=== PATIENT | male | born 1970 | race American Indian/Alaskan Native ===

== ENCOUNTER 2018-06-05 11:15 | Emergency (ER) | payer MEDICAID ==
[2018-06-05 11:33] VITALS: TEMP 98.3
[2018-06-05 12:39] LABS: BASO % 0.3 % (0.0-2.0); EOS # 0.1 K/uL (0.0-0.7); EOS % 1.6 % (0.0-4.0); HEMOGLOBIN 14.2 g/dL (12.0-18.0); LYMPH # 2.3 K/uL (1.0-4.3); LYMPH % 44.7 % (20.0-40.0); MEAN CELL VOLUME 93.6 fL (80.0-94.0); MEAN CORPUSCULAR HEMOGLOBIN 31.7 pg (27.0-31.0); MEAN CORPUSCULAR HGB CONC 33.9 g/dL (33.0-37.0); MEAN PLATELET VOLUME 8.2 fL (7.2-11.7); MONO # 0.3 K/uL (0.0-0.8); MONO % 6.5 % (0.0-10.0); NEUT # 2.4 K/uL (1.8-7.0); NEUT % 46.9 % (50.0-75.0); NRBC % 0.1 % (0.0-2.0); RBC 4.47 Mil/uL (4.40-5.90); RED CELL DISTRIBUTION WIDTH 13.4 % (11.5-14.5); WHITE BLOOD COUNT 5.2 K/uL (4.8-10.8)
[2018-06-05 12:43] VITALS: RESP 12; O2SAT 100
[2018-06-05 12:49] LABS: ALB/GLOB RATIO 1.7 (1.0-2.1); ALBUMIN 4.5 g/dL (3.5-5.0); ALT/SGPT 35 U/L (21-72); AST/SGOT 23 U/L (17-59); BLOOD UREA NITROGEN 9 mg/dL (9-20); CALCIUM 9.1 mg/dl (8.6-10.4); GFR AFRICAN-AMERICAN > 60; GFR NON-AFRICAN AMERICAN > 60
[2018-06-05 13:20] VITALS: BP 143/97; PULSE 70
--- NOTE | 2018-06-05 13:32 | C.PDOC ---
History Of Present Illness 48yo male, with history of hypertension, was on Lisinopril but since he went to a rehab facility starting 2 weeks ago, he has been taking Clonidine BID. Patient states that he has been having a frontal headache with associated eye pressure since this morning, with elevated blood pressure as well. Patient states he last took his Clonidine at 9AM and had a similar episode last week. Patient was also seen in an ER at that time and had a negative Head CT. At present, he is also complaining of tingling to his first, second and third digits on his left hand and has had this in the past. Otherwise patient denies any vision changes, vomiting, weakness, numbness, and offers no other medical complaints. Time Seen by Provider: 06/05/18 11:53 Chief Complaint (Nursing): Headache History Per: Patient History/Exam Limitations: no limitations Onset/Duration Of Symptoms: Hrs Current Symptoms Are (Timing): Still Present Quality: "Pain" Associated Symptoms: denies: Photophobia, Blurred Vision, Nausea, Vomiting, Extremity Weakness Additional History Per: Patient Past Medical History Reviewed: Historical Data, Nursing Documentation, Vital Signs Vital Signs: Last Vital Signs Temp 98.3 F 06/05/18 11:30 Pulse 70 06/05/18 13:19 Resp 12 06/05/18 12:41 BP 143/97 H 06/05/18 13:19 Pulse Ox 100 06/06/18 18:51 - Medical History PMH: HTN Surgical History: No Surg Hx Family History: States: No Known Family Hx - Social History Hx Alcohol Use: No Hx Substance Use: No Review Of Systems Eyes: Negative for: Vision Change Cardiovascular: Negative for: Chest Pain, Light Headedness Respiratory: Negative for: Shortness of Breath Musculoskeletal: Positive for: Other (tingling to 1-3 digits on left hand) Neurological: Positive for: Headache. Negative for: Weakness, Numbness, Dizziness Physical Exam - Physical Exam Appears: Non-toxic, No Acute Distress Skin: Warm, Dry Head: Atraumatic, Normacephalic, No Tenderness Eye(s): bilateral: Normal Inspection, PERRL, EOMI Neck: Normal ROM, Supple Chest: Symmetrical Cardiovascular: Rhythm Regular Respiratory: Normal Breath Sounds Gastrointestinal/Abdominal: Soft, No Tenderness Back: Normal Inspection, No Vertebral Tenderness, No Paraspinal Tenderness Extremity: Normal ROM, No Tenderness, Capillary Refill (< 2 seconds), No Deformity Extremity: Bilateral: Atraumatic Pulses: Right Radial: Normal, Left Femoral: Normal Neurological/Psych: Oriented x3, Normal Speech, Normal Cognition, Normal Cranial Nerves, Normal Motor, Normal Sensation, Normal Reflexes, Other (Finger to nose, and heel to chapa intact. GALINDO all normal. ) Gait: Steady Other Neurological Findings: No Facial Palsy, No Tongue Deviation Extremity: Right: No Drift, Left: No Drift, Upper: No Drift, Lower: No Drift ED Course And Treatment - Laboratory Results Result Diagrams: 06/05/18 12:30 06/05/18 12:30 O2 Sat by Pulse Oximetry: 100 (RA) Pulse Ox Interpretation: Normal Medical Decision Making Medical Decision Making: Impression: Headache Plan: -- Will treat for headache, no indication for repeat CT as last workup was negative. Patient has history of similar headache with hypertension. 1336 pt feels much better, headache resolved, bp now 143/97. d/c home with lisinopril and f/u med clinic Disposition Counseled Patient/Family Regarding: Studies Performed, Diagnosis, Need For Followup, Rx Given - Disposition Referrals: [facility] [Outside] Disposition: HOME/ ROUTINE Disposition Time: 13:39 Condition: IMPROVED Additional Instructions: PLEASE STOP TAKING CLONIDINE. TAKE LISINOPRIL 40 MG BY MOUTH ONCE A DAY AT THE SAME TIME. FOLLOW UP IN MEDICAL CLINIC IN A WEEK. TAKE TYLENOL FOR PAIN IF NEEDED. Prescriptions: Acetaminophen [Tylenol 325mg tab] 650 mg PO Q6 #30 tab Lisinopril [Zestril] 40 mg PO DAILY #30 tab Instructions: High Blood Pressure (DC) Forms: [employer] (Cam[place]onian) - Clinical Impression Clinical Impression: Headache, Hypertension - Scribe Statement The provider has reviewed the documentation as recorded by the Aleksandr Cherry Provider Attestation: All medical record entries made by the Aleksandr were at my direction and personally dictated by me. I have reviewed the chart and agree that the record accurately reflects my personal performance of the history, physical exam, medical decision making, and the department course for this patient. I have also personally directed, reviewed, and agree with the discharge instructions and disposition.
== END 2018-06-05 13:49 | disposition home or self-care (01) ==
LOC: C.ER 11:15
DX: I10 Essential (primary) hypertension (principal); R51 Headache